=== PATIENT | female | born 1945 | race Two or more races ===

== ENCOUNTER 2016-09-15 06:00 | Day surgery (SDC) | payer MEDICARE, MEDICAID ==
[~2016-09-15 06:00] MED LIST: GLUCAGON 1 MG/ML VIAL IM ONE; GLYCOPYRROLATE 1 MG/5 ML VIAL IVP ONE; LIDOCAINE-MPF 2% 5 ML VIAL IM ONE; PROPOFOL 1000 MG/100 ML IV ONE
[2016-09-15] MEDS ORDERED: LACTATED RINGERS 1,000 ML IV ONE (08:02)
== END 2016-09-15 06:01 | disposition home or self-care (01) ==
PROC: 0DJD8ZZ Inspection of Lower Intestinal Tract, Via Natural or Artificial Opening Endoscopic (ICD-10-PCS; principal; 2016-09-15 07:30)
DX: Z12.11 Encounter for screening for malignant neoplasm of colon (principal); K59.00 Constipation, unspecified; Z79.82 Long term (current) use of aspirin; E11.9 Type 2 diabetes mellitus without complications; Z79.84 Long term (current) use of oral hypoglycemic drugs; E78.5 Hyperlipidemia, unspecified
CPT/HCPCS: G0121; J7120

== ENCOUNTER 2016-09-18 13:48 | Outpatient (CLI) | payer MEDICARE, MEDICAID | END 2016-09-18 13:49 | disposition home or self-care (01) | DX: R50.9 Fever, unspecified (principal) ==

== ENCOUNTER 2016-09-18 14:45 | Outpatient (CLI) | payer MEDICARE, MEDICAID | END 2016-09-18 14:46 | disposition home or self-care (01) | DX: R05 Cough (principal); R50.9 Fever, unspecified ==

== ENCOUNTER 2016-09-22 20:24 | Emergency (ER) | payer MEDICARE, MEDICAID ==
[2016-09-22] MEDS ORDERED: ALBUTEROL NEB 2.5 MG/3 ML INH STA (20:48)
[2016-09-22] MEDS ORDERED: guaiFENesin/CODEINE 5 ML UDC PO STA (20:48)
[2016-09-22] MEDS ORDERED: guaiFENesin/CODEINE 5 ML UDC ONE (20:54)
[2016-09-22] MEDS ORDERED: ALBUTEROL NEB 2.5 MG/3 ML INH ONE (21:15)
== END 2016-09-22 22:15 | disposition home or self-care (01) ==
DX: J40 Bronchitis, not specified as acute or chronic (principal); I10 Essential (primary) hypertension; E11.9 Type 2 diabetes mellitus without complications; Z79.84 Long term (current) use of oral hypoglycemic drugs; Z79.82 Long term (current) use of aspirin
CPT/HCPCS: 71020; 94640; 99283; 99284; A9270; J7613

== ENCOUNTER 2016-11-21 11:40 | Outpatient (CLI) | payer MEDICARE, MEDICAID | END 2016-11-21 11:41 | DX: E11.9 Type 2 diabetes mellitus without complications (principal) ==